=== PATIENT | male | born 1985 | race Caucasian/White ===

== ENCOUNTER 2022-03-16 17:20 | Emergency (ER) | payer OTHER ==
[~2022-03-16] VITALS: Ht 175.3 cm; Wt 113.6 kg
[2022-03-16] MEDS ORDERED: FLUCONAZOLE 150 MG TABLET PO ONE (18:45)
[2022-03-16] MEDS ORDERED: SULFAMETHOX/TRIMETH DS 800-160 MG/TABLET PO ONE (18:45)
[2022-03-16] MEDS ORDERED: SULF1TAB42 PO (21:24)
[2022-03-16] MEDS ORDERED: FLUC150T61 PO (21:24)
[2022-03-16 21:34] VITALS: BP 125/86
== END 2022-03-16 22:00 | disposition home or self-care (01) ==
LOC: EDUNIT# 17:20 → EMS 17:26
DX: B35.3 Tinea pedis (principal); L03.116 Cellulitis of left lower limb; L03.115 Cellulitis of right lower limb; Z89.422 Acquired absence of other left toe(s)
CPT/HCPCS: 99283